=== PATIENT | male | born 1995 | race Caucasian/White ===

== ENCOUNTER 2016-07-07 09:16 | Emergency (ER) | payer MEDICAID ==
[~2016-07-07] VITALS: Ht 180.3 cm; Wt 86.2 kg
[2016-07-07 10:10] VITALS: BP 132/68
== END 2016-07-07 12:32 | disposition home or self-care (01) ==
LOC: ER 09:16
DX: S16.1XXA Strain of muscle, fascia and tendon at neck level, initial encounter (principal); V49.9XXA Car occupant (driver) (passenger) injured in unspecified traffic accident, initial encounter; Y93.89 Activity, other specified; Y99.8 Other external cause status; Y92.89 Other specified places as the place of occurrence of the external cause
CPT/HCPCS: 72040

== ENCOUNTER 2016-07-21 14:02 | Emergency (ER) | payer MEDICAID ==
[~2016-07-21] VITALS: Ht 180.3 cm; Wt 86.2 kg
[2016-07-21 16:41] VITALS: BP 131/79
== END 2016-07-21 16:52 | disposition home or self-care (01) ==
LOC: ER 14:02
DX: S39.012A Strain of muscle, fascia and tendon of lower back, initial encounter (principal); M54.2 Cervicalgia; G89.29 Other chronic pain; V89.2XXA Person injured in unspecified motor-vehicle accident, traffic, initial encounter; Y93.89 Activity, other specified; Y99.8 Other external cause status; Y92.488 Other paved roadways as the place of occurrence of the external cause
CPT/HCPCS: 72100